=== PATIENT | male | born 1970 | race Caucasian/White ===

== ENCOUNTER 2017-03-09 07:27 | Emergency (ER) | payer OTHER ==
[2017-03-09 07:42] LABS: BASOPHILS # (AUTO) 0.1 10^3/uL (0.0-0.1); BASOPHILS % (AUTO) 1.2 %; EOSINOPHILS # (AUTO) 0.2 10^3/uL (0.0-0.7); EOSINOPHILS % (AUTO) 2.6 %; HGB - HEMOGLOBIN 16.1 g/dL (14.0-18.0); LYMPHOCYTES # (AUTO) 2.2 10^3/uL (1.5-3.5); LYMPHOCYTES % (AUTO) 31.4 %; MEAN CORPUSCULAR HGB CONC 34.2 g/dL (32.0-36.0); MEAN CORPUSCULAR VOLUME 90.5 fL (80.0-94.0); MEAN PLATELET VOLUME 8.6 fL (7.4-11.4); MONOCYTES # (AUTO) 0.8 10^3/uL (0.0-1.0); MONOCYTES % (AUTO) 11.9 %; NEUTROPHILS # (AUTO) 3.7 10^3/uL (1.5-6.6); NEUTROPHILS % (AUTO) 52.9 %; PLT - PLATELET COUNT 282 10^3/uL (130-450); RED BLOOD COUNT 5.18 10^6/uL (4.70-6.10); WHITE BLOOD COUNT 6.9 x10^3/uL (4.8-10.8)
[2017-03-09] MEDS ORDERED: SODIUM CHLORIDE 0.9% 1,000 ML IV ONE (07:48)
[2017-03-09] MEDS ORDERED: diltiaZEM INJ 5 MG/ML VIAL IVP STA (07:49)
[2017-03-09 07:55] LABS: ALBUMIN 4.5 g/dL (3.2-5.5); ALBUMIN/GLOBULIN RATIO 1.5 (1.0-2.2); BILIRUBIN,TOTAL 0.9 mg/dL (0.2-1.0); CALCIUM 9.5 mg/dL (8.5-10.3); CREATININE 1.2 mg/dL (0.6-1.2); TOTAL PROTEIN 7.6 g/dL (6.7-8.2)
[2017-03-09] MEDS ORDERED: diltiaZEM INJ 5 MG/ML VIAL ONE (07:56)
--- NOTE | 2017-03-09 08:11 | ED Physician Documentation ---
PD HPI CHEST PAIN - Stated complaint Stated Complaint: CHEST DISCOMFORT - Chief complaint Chief Complaint: Cardiac - History obtained from History obtained from: Patient - History of Present Illness Timing - onset: How many hours ago (5) Timing - onset during: Sleep Timing - details: Still present Location: Left chest Associated symptoms: Shortness of air (transient), Feeling faint / dizzy, Palpitations. No: Nausea, Vomiting Similar symptoms before: Diagnosis (Atrial fibrillation in 2005.) - Additional information Additional information: The patient is a 46-year-old male with past history of atrial fibrillation, who presents with palpitations, lightheadedness and chest discomfort that started about 2 AM, 5 hours prior to arrival. He feels transient shortness of breath when standing. He denies nausea or vomiting. His symptoms are similar to previous episode when he had atrial fibrillation in 2005. He converted spontaneously shortly after arrival in the emergency department at that time. He has no known history of hyperthyroidism. He is currently treated with metoprolol, 50 mg daily. He did take his metoprolol dose this morning. Review of Systems Constitutional: reports: Other (Lightheaded). denies: Fever Ears: denies: Tinnitus/ringing Nose: denies: Congestion Throat: denies: Sore throat Cardiac: reports: Chest pain / pressure, Palpitations Respiratory: reports: Dyspnea (Transient). denies: Cough GI: denies: Abdominal Pain, Nausea, Vomiting : denies: Dysuria Skin: denies: Rash Musculoskeletal: denies: Back pain Neurologic: denies: Syncope, Headache PD PAST MEDICAL HISTORY - Past Medical History Past Medical History: Yes Cardiovascular: Hypertension, Atrial fibrillation, Murmur, Arrhythmia Respiratory: None Neuro: None Endocrine/Autoimmune: None - Past Surgical History Ortho: Other - Present Medications Home Medications: Ambulatory Orders Medication Instructions Recorded Confirmed Metoprolol Tartrate 50 mg PO DAILY 03/09/17 03/09/17 Omeprazole [PriLOSEC] 20 mg PO DAILY 03/09/17 03/09/17 - Allergies Allergies/Adverse Reactions: Allergies Allergy/AdvReac Type Severity Reaction Status Date / Time No Known Drug Allergies Allergy Verified 03/09/17 07:34 - Social History Does the pt smoke?: No Smoking Status: Former smoker (Quit 3 years ago.) Does the pt drink ETOH?: No Does the pt have substance abuse?: No PD ED PE NORMAL - Vitals Vital signs reviewed: Yes (Tachycardic on the monitor, in the 140s. Hypertension.) - General General: Alert and oriented X 3, Well developed/nourished - HEENT HEENT: Atraumatic, EOMI, Moist mucous membranes - Neck Neck: No adenopathy, No JVD - Cardiac Cardiac: No murmur, Other (Rapid rate, irregularly irregular rhythm.) - Respiratory Respiratory: No respiratory distress, Clear bilaterally - Abdomen Abdomen: Soft, Non tender, No organomegaly - Back Back: No CVA TTP - Derm Derm: No rash - Extremities Extremities: No edema, No calf tenderness / cord - Neuro Neuro: Alert and oriented X 3, No motor deficit, Normal speech Results - Vitals Vitals: Oxygen O2 Source Room air - EKG (time done) 07:34 Rate: Rate (enter#) (147) Rhythm: Atrial fibrillation [place]: Normal QRS: Normal Ischemia: Normal ST segments Compare to prior EKG: Old EKG unavailable Computer interpretation: Agree with computer 10:43 Rate: Rate (enter#) (58) Rhythm: NSR [place]: Normal Intervals: Normal [place] QRS: Normal Ischemia: Normal ST segments Other comments: Other comments (Post cardioversion.) Compare to prior EKG: Changed from prior EKG (No longer in A-fib.) Computer interpretation: Agree with computer - Labs Labs: Laboratory Tests 03/09/17 03/09/17 03/09/17 07:34 07:34 07:34 WBC 6.9 RBC 5.18 Hgb 16.1 Hct 46.9 MCV 90.5 MCH 31.0 MCHC 34.2 RDW 13.0 Plt Count 282 MPV 8.6 Neut # 3.7 Lymph # 2.2 [place] # 0.8 Eos # 0.2 Baso # 0.1 Absolute Nucleated RBC 0.00 Nucleated RBC % 0.0 Sodium 139 Potassium 3.9 Chloride 103 Carbon Dioxide 23 Anion Gap 13.0 BUN 15 Creatinine 1.2 Estimated GFR (MDRD) 65 L Glucose 120 H Calcium 9.5 Total Bilirubin 0.9 AST 22 ALT 29 Alkaline Phosphatase 58 Troponin I < 0.04 Total Protein 7.6 Albumin 4.5 Globulin 3.1 Albumin/Globulin Ratio 1.5 Lipase 23 Procedures - Cardioversion Attempt 1 Indication: Tachyarrhythmia Risks, benefits, alternatives explained to: Pt Prep: IV, O2, airveyor operator, Pulse ox, Airway equip Meds: Ativan (1 mg), Propofol (80 mg) CS via: Pads, Anterolateral Sync: 150j Post cardioversion rhythm: NSR Performed by: ED MD [facility] DECISION MAKING - ED course Complexity details: reviewed old records, reviewed results, re-evaluated patient , considered differential, d/w patient, d/w family, d/w PMD ED course: The patient's presentation is significant for recurrent atrial fibrillation with rapid ventricular response. His presentation does not suggest acute myocardial ischemia, and troponin is normal, and EKG does not reveal acute ST elevations. TSH was checked, and is within normal range. CBC and chemistry panel are also normal. Treatment in the emergency department included administration of diltiazem 15 mg IV. Although his rate decreased, his rhythm remained atrial fibrillation. Metoprolol 5 mg is administered IV, with the same results. I discussed with him the risks and benefits of cardioversion. After administration of Ativan 1 mg and propofol 80 mg the patient was adequately sedated and underwent synchronous cardioversion at 150 J. Resulting rhythm was normal sinus. There were no complications from the procedure. I subsequently discussed his presentation with his primary physician, Dr. Knight, who agrees with urgent outpatient follow-up. He will address the issue of potential anticoagulation therapy. Chewable aspirin, 324 mg, was administered in the emergency department. The patient is being discharged with instructions to take one aspirin daily, and to call his primary physician's office today to schedule follow-up appointment. I also discussed with him potentially worrisome signs or symptoms that should prompt reevaluation in the emergency department. Departure - Departure Disposition: 01 Home, Self Care Clinical Impression: Atrial fibrillation Qualifiers: Atrial fibrillation type: paroxysmal Qualified Code(s): I48.0 - Paroxysmal atrial fibrillation Condition: Stable Instructions: ED Afib Follow-Up: Don Knight MD [Primary Care Provider] - Comments: Take 1 aspirin daily. Follow up with your primary physician within 1 week. Call today to schedule an appointment. Return to the emergency department if you develop recurrent atrial fibrillation , chest pain, shortness of breath, or otherwise worsening symptoms. Discharge Date/Time: 03/09/17 11:56
[2017-03-09] MEDS ORDERED: METOPROLOL 5 MG/5 ML VIAL IVP STA (08:56)
[2017-03-09] MEDS ORDERED: METOPROLOL 5 MG/5 ML VIAL IVP ONE (09:05)
[2017-03-09] MEDS ORDERED: MIDAZOLAM 2 MG/2 ML VIAL IVP STA (10:11)
[2017-03-09] MEDS ORDERED: PROPOFOL 200 MG/20 ML VIAL IVP STA (10:11)
[2017-03-09] MEDS ORDERED: ASPIRIN CHEW 81 MG TABLET PO STA (11:40)
[2017-03-09 11:51] VITALS: BP 113/63
== END 2017-03-09 11:56 | disposition home or self-care (01) ==
LOC: ED 07:27
DX: I48.0 Paroxysmal atrial fibrillation (principal); I10 Essential (primary) hypertension; Z87.891 Personal history of nicotine dependence
CPT/HCPCS: 36415; 80053; 83690; 84484; 85025; 92960; 93005; 94770; 96361; 96374; 96375; 99284; A9270

== ENCOUNTER 2018-05-21 10:52 | Emergency (ER) | payer OTHER ==
[2018-05-21 11:12] VITALS: BP 145/88
[2018-05-21 11:43] LABS: BASOPHILS % (AUTO) 0.8 %; EOSINOPHILS # (AUTO) 0.1 10^3/uL (0.0-0.7); EOSINOPHILS % (AUTO) 2.6 %; HGB - HEMOGLOBIN 14.3 g/dL (14.0-18.0); LYMPHOCYTES # (AUTO) 1.7 10^3/uL (1.5-3.5); LYMPHOCYTES % (AUTO) 32.8 %; MEAN CORPUSCULAR HEMOGLOBIN 31.1 pg (27.0-31.0); MEAN CORPUSCULAR HGB CONC 34.7 g/dL (32.0-36.0); MEAN CORPUSCULAR VOLUME 89.8 fL (80.0-94.0); MEAN PLATELET VOLUME 8.3 fL (7.4-11.4); MONOCYTES # (AUTO) 0.7 10^3/uL (0.0-1.0); MONOCYTES % (AUTO) 13.1 %; NEUTROPHILS # (AUTO) 2.6 10^3/uL (1.5-6.6); NEUTROPHILS % (AUTO) 50.7 %; PLT - PLATELET COUNT 268 10^3/uL (130-450); RED BLOOD COUNT 4.61 10^6/uL (4.70-6.10); RED CELL DISTRIBUTION WIDTH 13.3 % (12.0-15.0); WHITE BLOOD COUNT 5.1 x10^3/uL (4.8-10.8)
[2018-05-21 11:59] LABS: ALBUMIN 4.4 g/dL (3.2-5.5); ALBUMIN/GLOBULIN RATIO 1.6 (1.0-2.2); TOTAL PROTEIN 7.2 g/dL (6.7-8.2)
--- NOTE | 2018-05-21 12:38 | XRAY Report ---
Reason: heart palpations Procedure Date: 05/21/2018 Accession Number: [id number] / [id number] Procedure: XR - Chest 1 View X-Ray CPT Code: 65414 FULL RESULT: EXAM: CHEST RADIOGRAPHY EXAM DATE: 05/21/2018 12:17 PM. CLINICAL HISTORY: Heart palpations. COMPARISON: None. TECHNIQUE: 1 view. FINDINGS: Lungs/Pleura: No focal opacities evident. No pleural effusion. No pneumothorax. Mediastinum: Within exam limitations, the cardiomediastinal contour is normal. Other: None. IMPRESSION: Normal single view chest. RADIA
--- NOTE | 2018-05-21 14:23 | ED Physician Documentation ---
PD HPI CHEST PAIN - Stated complaint Stated Complaint: LIGHT HEAD/SOA - Chief complaint Chief Complaint: Cardiac - History obtained from History obtained from: Patient, Family - History of Present Illness Timing - onset: Today (About 8 AM this morning while sitting at a desk he suddenly felt lightheaded and it lasted until about noon. He was still symptomatic will be EKG was done here. He wondered if he might be in A. fib, because be it was similar to symptoms of prior A. fib which were also without significant palpitations or chest pain. His left arm felt wonky but not painful. He denies pedal edema, calf pain, shortness of breath, recent travel. He feels completely back to normal now.) Review of Systems Constitutional: denies: Fever, Chills, Myalgias, Fatigue Nose: denies: Rhinorrhea / runny nose, Congestion Cardiac: denies: Chest pain / pressure, Palpitations Respiratory: denies: Dyspnea PD PAST MEDICAL HISTORY - Past Medical History Cardiovascular: Hypertension, Atrial fibrillation, Murmur, Arrhythmia Respiratory: None Endocrine/Autoimmune: None - Past Surgical History Ortho: Other - Present Medications Home Medications: Ambulatory Orders Medication Instructions Recorded Confirmed Metoprolol Tartrate 50 mg PO DAILY 03/09/17 03/09/17 Omeprazole [PriLOSEC] 20 mg PO DAILY 03/09/17 03/09/17 Flecainide [Tambocar] 50 mg PO PRN 05/21/18 05/21/18 - Allergies Allergies/Adverse Reactions: Allergies Allergy/AdvReac Type Severity Reaction Status Date / Time No Known Drug Allergies Allergy Verified 05/21/18 11:12 - Social History Does the pt smoke?: No Smoking Status: Former smoker (Quit 3 years ago.) Does the pt drink ETOH?: No Does the pt have substance abuse?: No PD ED PE NORMAL - Vitals Vital signs reviewed: Yes - General General: Alert and oriented X 3, No acute distress - HEENT HEENT: PERRL, EOMI - Neck Neck: Supple, no meningeal sign, No bony TTP - Cardiac Cardiac: RRR, No murmur - Respiratory Respiratory: No respiratory distress, Clear bilaterally - Abdomen Abdomen: Soft, Non tender - Back Back: No CVA TTP, No spinal TTP - Derm Derm: Normal color, Warm and dry - Extremities Extremities: No edema, No calf tenderness / cord - Neuro Neuro: Alert and oriented X 3, Normal speech Results - Vitals Vitals: Vital Signs - 24 hr 05/21/18 11:10 Temperature 36.3 C L Heart Rate 60 Respiratory 20 Rate Blood Pressure 145/88 H O2 Saturation 96 Oxygen O2 Source Room air - EKG (time done) 1117 Rate: Rate (enter#) (55) Rhythm: NSR [place]: Normal Intervals: Normal [place] QRS: Normal Ischemia: ST elevation c/w repol. No: ST depression Computer interpretation: Agree with computer - Labs Labs: Laboratory Tests 05/21/18 05/21/18 05/21/18 11:25 11:25 11:25 WBC 5.1 RBC 4.61 L Hgb 14.3 Hct 41.4 L MCV 89.8 MCH 31.1 H MCHC 34.7 RDW 13.3 Plt Count 268 MPV 8.3 Neut # (Auto) 2.6 Lymph # (Auto) 1.7 [place] # (Auto) 0.7 Eos # (Auto) 0.1 Baso # (Auto) 0.0 Absolute Nucleated RBC 0.00 Nucleated RBC % 0.0 Sodium 135 Potassium 4.0 Chloride 103 Carbon Dioxide 24 Anion Gap 8.0 BUN 14 Creatinine 1.0 Estimated GFR (MDRD) 80 L Glucose 104 H Calcium 9.0 Total Bilirubin 1.0 AST 27 ALT 40 Alkaline Phosphatase 54 Troponin I < 0.04 Total Protein 7.2 Albumin 4.4 Globulin 2.8 Albumin/Globulin Ratio 1.6 Lipase 31 PD MEDICAL DECISION MAKING - ED course ED course: 47-year-old gentleman with lightheaded episode. Seems unlikely to be A. fib because he was still symptomatic when he arrived and was in the waiting room and the EKG was done which was normal sinus rhythm. He does note that he was sick over the weekend with sore throat and may have had poor a p.o. intake. Regardless he is asymptomatic now and his workup is negative. Departure - Departure Disposition: 01 Home, Self Care Clinical Impression: Lightheaded Condition: Good Record reviewed to determine appropriate education?: Yes Instructions: ED Chest Pain NonCardiac Comments: Call your doctor to arrange a follow-up appointment, make the next available appointment. In the interim, return anytime if worse or if new symptoms develop. Your blood pressure was elevated today on check into the emergency department. This does not mean that you have hypertension, it is a common phenomenon to come to the emergency department and have elevated blood pressure. I recommend that you see your primary care physician within the week to have it rechecked when you are feeling better.
== END 2018-05-21 14:30 | disposition home or self-care (01) ==
LOC: ED 10:52
DX: R42 Dizziness and giddiness (principal); I10 Essential (primary) hypertension; Z87.891 Personal history of nicotine dependence
CPT/HCPCS: 36415; 71045; 80053; 83690; 84484; 85025; 93005; 99282; 99284

== ENCOUNTER 2018-12-04 09:56 | Outpatient (CLI) | payer OTHER ==
[2018-12-04 10:50] VITALS: BP 125/81
--- NOTE | 2018-12-04 10:50 | SLEEP CARE CONSULTATION ---
Information from patient questionnaire entered by Yudith Herbert. I have reviewed and concur with the information entered by Yudith Herbert. This document represents the service I personally performed and the decisions made by me, Cary Lyn MD, [facility]. History of Present Illness Reason for Visit: New patient Chief Complaint: reports: Snoring, Frequent awakenings at night Duration of Symptoms: 5 years Usual bedtime: 2525-2139 Time it takes to fall asleep: 3 minutes Snores at night: Yes Observed to quit breathing while asleep: Yes Sleeps alone due to snoring: No Number of times waking at night: 2-3 Reasons for waking at night: reports: Pain Toss, Turn, or Twitch while sleeping: Yes Recalls having dreams: No Usually gets out of bed at: [id number] Feels refreshed in the morning: No Morning headache: No Sleepy or fatigued during the day: No Ever fallen asleep while driving: Yes Takes day naps: No Dreams during day naps: No Prior sleep studies: No Additional HPI information: I had the pleasure of seeing Mr. Amaya along with his today regarding the possibility of his having a sleep disorder. As you know, he is a 48 year old gentleman who complains of loud snore and frequent awakenings for the past 5 y ears. During the day he can feel his throat closing up. Upper airway endoscopy did not reveal any abnormalities but the ENT physician recommended a sleep study. The patient tells me that he normally goes to bed around 9 - 11 pm, and it takes him approximately 3 minutes to fall asleep. He has been told that he snores loudly and irregularly at night. HE has also been observed to stop breathing in his sleep. His spouse can still sleep in the same bed. He can recall waking up on the average of 2 - 3 times during the night. Most of the time he wakes up because of pain. He has awakened occasionally because of his own snoring, or choking, or having to gasp for air. There is a lot of tossing and turning in his sleep. He has somniloquy (sleep talking) but not somnambulism (sleep walking). Generally there is no recollection of dreams. In the morning he usually gets up out of the bed around 4 - 5 a.m. not feeling refreshed nor rested. He usually does not have a morning headache. During the day he does not feel sleepy or fatigued. However, his score on [place] Sleepiness Scale is 12 out of 24. He has never fallen asleep while driving nor has had any accident due to sleepiness. He usually does not take naps during the day. Upon falling asleep during the day he denies having vivid dreams. He has never had sleep paralysis, experienced cataplexy but reports symptoms of restless leg syndrome. He denies having impaired concentration during the day. Subjective Initial [place] Sleepiness Scale score: 12 Past Medical History Past Medical History: reports: Hypertension, GERD Social History The patient's occupation is retired. Patient is and lives in [place]. Have you smoked in the past 12 months: Yes Cigarettes per day (20/pack): 20 Years of smokin Quit date: 2014 Smoking Pack Years: 35.0 Alcohol use: Yes Alcohol amount and frequency: 2 beers/night Caffeine use: Yes Caffeine amount and frequency: 1-2 coffees/morning Family History Family history of sleep disordered breathing: Yes Family Hx Sleep Apnea: Mother: Snoring, Sleep apnea - Treated, Sleep apnea - Untreated Allergies and Home Medications Drug allergies reviewed: Yes Home medication list reviewed: Yes Allergy and home medication list: Medications: Metoprolol and omeprazole Review of Systems Weight gain over past 5 years: 50 Cardiovascular: reports: high blood pressure, irregular heart rate or pulse Respiratory: reports: shortness of breath Gastrointestinal: reports: heartburn, difficulty swallowing Urinary: denies: incontinence, frequency, urgency, impotence, other Neurological: denies: headaches, seizure, head trauma, disorientation, speech dysfunction, gait or balance problems, fainting or unconsciousness, other Psychiatric: denies: Attention Deficit Hyperactivity, anxiety, depression, mood disorder, claustrophobia, other Ear/Nose/Throat: reports: wisdom teeth removed Endocrine: denies: thyroid disease, history of goiter, sluggishness, too hot or cold, excessive thirst, increased appetite, increased urination, unexplained weakness, other Musculoskeletal: reports: joint pain, neck pain, back pain, mobility problems Immunologic: reports: sneezing Physical Exam Vital signs obtained and entered by: Dr. Lyn Blood Pressure: 125/81 Cuff size: regular Heart Rate: 55 O2 Saturation: 96 Height: 6 ft Weight: 215 lb Body Mass Index: 29.1 BMI Classification: Overweight Neck circumference: 16.5 Mood/affect: normal HEENT: No craniofacial malformation Nostrils: patent to airflow Turbinates: normal Septum: midline Mouth and throat: narrow oropharynx Soft palate: normal Hard palate: normal Uvula: normal Uvula visualization: 25% Mallampati Class III Tongue: normal in size Tonsils: small Chin and jaw: normal size and position Neck: normal w/o lymphadenopathy or thyromegaly Heart: regular rate and rhythm Lungs: clear bilaterally Abdomen: soft, non-tender Extremities: no edema or clubbing Neurologic: intact, no focal deficits Impression and Plan IMPRESSION: 1. Obstructive Sleep Apnea-Hypopnea Syndrome, as suggested by history of loud and irregular snoring, observed cessation of breath while asleep, frequent awakenings, unrefreshed sleep, and persistent fatigue. Narrow oropharynx and obesity are common predisposing factors for obstructive sleep apnea-hypopnea syndrome. Pathophysiology of sleep-disordered breathing was discussed. I recommend proceeding to polysomnography to confirm the diagnosis and to assess severity. If he has significant sleep disordered breathing, a manual CPAP titration study will also be performed to find the optimal treatment pressure. I informed the patient of what the sleep studies involve and after some discussion, he agreed to proceed. Plan: 1. Schedule polysomnography + manual CPAP titration study and return in 1 to 2 weeks after the study to discuss result and initiate therapy. 2. Avoid long distance driving or when feeling sleepy. 3. Avoid alcohol, sedative and muscle relaxant around bedtime. 4. Attempt to lose some weight. I spent 100% of this 20 minute visit face to face with the patient with greater than 50% of this was spent time counseling the patient and coordination of care.
== END 2018-12-04 09:57 | disposition home or self-care (01) ==
LOC: SC 09:56
PROVIDERS: ATTEND Internal Medicine Pulmonary Disease
DX: R06.83 Snoring (principal); R06.81 Apnea, not elsewhere classified; G47.8 Other sleep disorders; R53.83 Other fatigue
CPT/HCPCS: 99203; 99212

== ENCOUNTER 2019-01-21 19:13 | Outpatient (CLI) | payer OTHER | END 2019-01-21 19:14 | disposition home or self-care (01) | LOC: SC 19:13 | PROVIDERS: ATTEND Internal Medicine Pulmonary Disease | DX: G47.33 Obstructive sleep apnea (adult) (pediatric) (principal); G47.61 Periodic limb movement disorder | CPT/HCPCS: 95810 ==

== ENCOUNTER 2019-01-28 11:04 | Outpatient (CLI) | payer OTHER ==
[2019-01-28 12:37] VITALS: BP 132/82
--- NOTE | 2019-01-28 12:37 | SLEEP CARE CONSULTATION ---
Information from patient questionnaire entered by Yudith Herbert. I have reviewed and concur with the information entered by Yudith Herbert. This document represents the service I personally performed and the decisions made by me, Imelda Aleman, RN, MSN, [employer]. History of Present Illness Prior sleep studies: Yes Year and Where: 2018 [facility] additional information: MIRANDA ANTUNEZ returns for follow up of the recently performed polysomnography and informed of findings . I explained the pathophysiology behind obstructive sleep apnea. We then spent quite a bit of time discussing different treatment options. For mild obstructive sleep apnea, surgery and oral appliance are alternatives to nasal CPAP therapy but in moderate or severe cases, nasal CPAP is the most effective and reliable treatment. Because apnea is primarily in supine position, then positional management therapy could be effective. Methods discussed such as positioning with pillows, using a T-shirt with tennis balls in the back, and shown commercial products that have a pillow format on back to prevent supine sleep. I reviewed the impact of weight changes on sleep apnea and strongly recommended losing weight. I explained how CPAP machine works with sample devices Resp[employer]ics Dreamstation and [employer] [id number] and what to expect when using the machine. After some discussion, the patient opted to consider his treatment options with his spouse and contact this office. Until then he will use positional therapy. Patient counseled not drink alcohol less than 4 hours before bedtime as it can increase snoring and apnea. Patient does not drink alcohol. Patient was cautioned about risks of drowsy driving until sleepiness symptoms resolve. Patient denies drowsy driving. AAS patient education on snoring and sleep apnea given and reviewed. Sleep Study - Polysomnography Polysomnography findings: The quality of the study is good. The patient had normal sleep efficiency. The sleep architecture was normal as well. Respiratory monitoring showed mild obstructive sleep apnea- hypopnea (AHI = 6.5) associated with frequent arousals, oxyhemoglobin desaturation and mild hypoxia (liang oxygen saturation of 87%). The respiratory events occurred almost exclusively during supine sleep (supine AHI = 23.2; non-supine = 3.18). Snore was light in intensity. There was mild periodic leg movement of sleep not associated with sleep fragmentation.. Cardiac rhythm was normal sinus rhythm without significant arrhythmia. No abnormal behavior (parasomnia) observed during the night. Subjective Initial [place] Sleepiness Scale score: 12 Current [place] Sleepiness Scale score: 11 Allergies and Home Medications Known drug allergies: No Home medication list reviewed: Yes Allergy and home medication list: omeprazole 20mg daily metoprolol 50mg daily flecainide 50 mg prn Review of Systems Review of systems same as previous: Yes Physical Exam Blood Pressure: 132/82 Cuff size: long Heart Rate: 58 O2 Saturation: 98 Height: 6 ft Weight: 222 lb 6.4 oz Body Mass Index: 30.2 BMI Classification: Obesity Class 1 Impression and Plan 1. Obstructive Sleep Apnea-Hypopnea Syndrome, mild, with lowest oxygen saturation of 87%. Probably this is the cause of the patients symptoms of unrefreshed sleep and excessive daytime sleepiness. Positive pressure therapy could benefit his hypertension and patient informed this was gold standard of treatment if hypertension diagnosis. As mentioned above, the patient will discuss his treatment options with his spouse and contact this office. Because the apnea is more severe supine, I instructed to avoid sleeping supine. Slumberbump information given. 2. Periodic limb movement, mild, that did not fragment patients sleep. Periodic limb movement of sleep (PLMS) is characterized by episodes of repetitive limb movements that occur during sleep and usually involve the lower limbs. The etiology is unknown but can be associated with restless leg syndrome (RLS), neuropathy, spinal cord diseases, kidney disease, rheumatological disorders, narcolepsy, obstructive sleep apnea, and REM sleep behavior disorder. Other factors that can increase PLMS and/or RLS are heredity and iron deficiency as reflected by a low serum ferritin level below 50 to 75mcg / L. Several medications can precipitate or aggravate PLMS such as selective serotonin re- uptake inhibitor antidepressants, tricyclic antidepressants, lithium, and dopamine receptor antagonists with the exception of bupropion. Caffeine can also aggravate PLMS and should be avoided. Sleep hygiene methods can also improve sleep as well as lifestyle changes such as regular exercise. Patient was advised that no treatment is needed at this time. If symptoms increase, then further evaluation is indicated. * Avoid supine sleep * Attempt to lose weight. * Avoid alcohol consumption near bedtime. * The patient is again cautioned about driving until sleepiness completely resolves. * Contact this office with choice of treatment. I spent 100% of this 25 minute visit face to face with the patient with greater than 50% of this was spent time counseling the patient and coordination of care.
== END 2019-01-28 11:05 | disposition home or self-care (01) ==
LOC: SC 11:04
PROVIDERS: ATTEND Nurse Practitioner Family
DX: G47.33 Obstructive sleep apnea (adult) (pediatric) (principal); G47.61 Periodic limb movement disorder; E66.9 Obesity, unspecified; Z68.30 Body mass index [BMI] 30.0-30.9, adult
CPT/HCPCS: 99212; 99214

== ENCOUNTER 2020-02-05 06:57 | Emergency (ER) | payer OTHER ==
[2020-02-05] MEDS ORDERED: ASPIRIN CHEW 81 MG TABLET PO STA (07:13)
--- NOTE | 2020-02-05 07:26 | ED Physician Documentation ---
PD HPI CHEST PAIN - Stated complaint Stated Complaint: CHEST PX - Chief complaint Chief Complaint: Cardiac - History obtained from History obtained from: Patient - Additional information Additional information: 49-year-old gentleman with history of atrial fibrillation but no history of heart disease. He has had a couple of negative nuclear stress test in the past, most recently in 2016 he had a negative stress echo. He was up this morning to get ready for work at 430. Developed some left-sided chest discomfort going into the left arm. He is not short of breath with it. He feels slightly odd and nauseous and dizzy with it. Pain is not severe. Pain does not radiate to the back. No pedal edema calf pain or recent travel. Review of Systems Ten Systems: 10 systems reviewed and negative Constitutional: denies: Fever, Chills Nose: denies: Rhinorrhea / runny nose, Congestion Cardiac: reports: Chest pain / pressure. denies: Palpitations, Pedal edema, Calf pain Respiratory: denies: Dyspnea, Cough PD PAST MEDICAL HISTORY - Past Medical History Cardiovascular: Hypertension, Atrial fibrillation, Murmur, Arrhythmia Respiratory: None Endocrine/Autoimmune: None - Past Surgical History Ortho: Other - Present Medications Home Medications: Ambulatory Orders Medication Instructions Recorded Confirmed Metoprolol Tartrate 50 mg PO DAILY 03/09/17 03/09/17 Omeprazole [PriLOSEC] 20 mg PO DAILY 03/09/17 03/09/17 Flecainide [Tambocar] 50 mg PO PRN 05/21/18 05/21/18 - Allergies Allergies/Adverse Reactions: Allergies Allergy/AdvReac Type Severity Reaction Status Date / Time No Known Drug Allergies Allergy Verified 02/05/20 07:06 - Social History Does the pt smoke?: No Smoking Status: Never smoker Does the pt drink ETOH?: No Does the pt have substance abuse?: No PD ED PE NORMAL - Vitals Vital signs reviewed: Yes - General General: Alert and oriented X 3, No acute distress - HEENT HEENT: PERRL, EOMI - Neck Neck: Supple, no meningeal sign, No bony TTP - Cardiac Cardiac: RRR, No murmur - Respiratory Respiratory: No respiratory distress, Clear bilaterally - Abdomen Abdomen: Soft, Non tender - Back Back: No CVA TTP, No spinal TTP - Derm Derm: Normal color, Warm and dry - Extremities Extremities: No edema, No calf tenderness / cord - Neuro Neuro: Alert and oriented X 3, Normal speech Results - Vitals Vitals: Vital Signs - 24 hr 02/05/20 02/05/20 02/05/20 07:02 07:05 07:35 Temperature 36.0 C L 36.3 C L 37.1 C Heart Rate 61 58 L 60 Respiratory 18 16 16 Rate Blood Pressure 140/82 H 122/87 H 128/80 O2 Saturation 99 99 99 02/05/20 02/05/20 02/05/20 08:05 09:00 10:00 Temperature Heart Rate 56 L 50 L 52 L Respiratory 16 15 16 Rate Blood Pressure 129/84 H 125/79 121/88 H O2 Saturation 98 99 99 02/05/20 10:30 Temperature 36.7 C Heart Rate 60 Respiratory 12 Rate Blood Pressure 130/82 H O2 Saturation 100 Oxygen O2 Source Room air - EKG (time done) 0702 Rate: Rate (enter#) (58) Rhythm: NSR, LAE [place]: Normal Intervals: Normal DC QRS: Normal Ischemia: ST elevation c/w repol Compare to prior EKG: Unchanged from prior EKG (no change from 05/21/18) Computer interpretation: Agree with computer - Labs Labs: Laboratory Tests 02/05/20 02/05/20 02/05/20 07:30 07:30 07:30 WBC 3.7 L RBC 4.64 L Hgb 14.5 Hct 42.9 MCV 92.5 MCH 31.3 H MCHC 33.8 RDW 12.0 Plt Count 268 MPV 10.4 Neut # (Auto) 1.7 Lymph # (Auto) 1.3 L [place] # (Auto) 0.5 Eos # (Auto) 0.1 Baso # (Auto) 0.0 Absolute Nucleated RBC 0.00 Nucleated RBC % 0.0 Sodium 137 Potassium 4.2 Chloride 105 Carbon Dioxide 24 Anion Gap 8.0 BUN 20 Creatinine 1.2 Estimated GFR (MDRD) 64 L Glucose 115 H Calcium 9.4 Total Bilirubin 0.8 AST 21 ALT 28 Alkaline Phosphatase 49 Troponin I High Sens 2.6 Total Protein 7.4 Albumin 4.7 Globulin 2.7 Albumin/Globulin Ratio 1.7 Lipase 28 02/05/20 09:47 WBC RBC Hgb Hct MCV MCH MCHC RDW Plt Count MPV Neut # (Auto) Lymph # (Auto) [place] # (Auto) Eos # (Auto) Baso # (Auto) Absolute Nucleated RBC Nucleated RBC % Sodium Potassium Chloride Carbon Dioxide Anion Gap BUN Creatinine Estimated GFR (MDRD) Glucose Calcium Total Bilirubin AST ALT Alkaline Phosphatase Troponin I High Sens 2.6 Total Protein Albumin Globulin Albumin/Globulin Ratio Lipase - Rads (name of study) 1v cxr Radiology: EMP read contemporaneously (NAD) PD MEDICAL DECISION MAKING - ED course ED course: 1-year-old gentleman with atraumatic chest pain this morning. Nonischemic EKG. Delta troponin negative. Heart score 2 Departure - Departure Disposition: Home, Self Care Clinical Impression: Chest pain Qualifiers: Chest pain type: unspecified Qualified Code(s): R07.9 - Chest pain, unspecified Condition: Good Record reviewed to determine appropriate education?: Yes Instructions: ED Chest Pain NonCardiac Comments: You were seen today for chest pain, there is no evidence of active heart disease. Follow-up with your primary care physician or house detective, next available appointment. Consider repeat stress testing since it has been a few years. Return if worsening. Continue current medications. Discharge Date/Time: 02/05/20 10:39
[2020-02-05 07:42] LABS: BASOPHILS % (AUTO) 1.1 %; EOSINOPHILS # (AUTO) 0.1 10^3/uL (0.0-0.7); EOSINOPHILS % (AUTO) 3.3 %; HGB - HEMOGLOBIN 14.5 g/dL (14.0-18.0); LYMPHOCYTES # (AUTO) 1.3 10^3/uL (1.5-3.5); LYMPHOCYTES % (AUTO) 35.1 %; MEAN CORPUSCULAR HEMOGLOBIN 31.3 pg (27.0-31.0); MEAN CORPUSCULAR HGB CONC 33.8 g/dL (32.0-36.0); MEAN CORPUSCULAR VOLUME 92.5 fL (80.0-94.0); MEAN PLATELET VOLUME 10.4 fL (7.4-11.4); MONOCYTES # (AUTO) 0.5 10^3/uL (0.0-1.0); MONOCYTES % (AUTO) 13.9 %; NEUTROPHILS # (AUTO) 1.7 10^3/uL (1.5-6.6); NEUTROPHILS % (AUTO) 46.1 %; PLT - PLATELET COUNT 268 10^3/uL (130-450); RED BLOOD COUNT 4.64 10^6/uL (4.70-6.10); WHITE BLOOD COUNT 3.7 x10^3/uL (4.8-10.8)
[2020-02-05 07:52] LABS: ALBUMIN 4.7 g/dL (3.2-5.5); ALBUMIN/GLOBULIN RATIO 1.7 (1.0-2.2); BILIRUBIN,TOTAL 0.8 mg/dL (0.2-1.0); CALCIUM 9.4 mg/dL (8.5-10.3); CREATININE 1.2 mg/dL (0.6-1.2); TOTAL PROTEIN 7.4 g/dL (6.7-8.2)
--- NOTE | 2020-02-05 08:26 | XRAY Report ---
PROCEDURE: Chest 1 View X-Ray INDICATIONS: Chest Pain TECHNIQUE: One view of the chest was acquired. COMPARISON: 05/21/2018. FINDINGS: Surgical changes and devices: None. Lungs and pleura: No pleural effusions or pneumothorax. Lungs are clear. Mediastinum: Mediastinal contours appear normal. Heart size is normal. Bones and chest wall: No suspicious bony lesions. Overlying soft tissues appear unremarkable. IMPRESSION: No acute disease. Findings are concordant with the preliminary study interpretation provided at the time of the study. Reviewed by: Paul Pickard MD on 02/05/2020 8:25 AM PST Approved by: Paul Pickard MD on 02/05/2020 8:25 AM PST Station ID: [id number]
[2020-02-05 10:32] VITALS: BP 130/82
== END 2020-02-05 10:39 | disposition home or self-care (01) ==
LOC: ED 06:57
DX: R07.89 Other chest pain (principal); I10 Essential (primary) hypertension; Z86.79 Personal history of other diseases of the circulatory system
CPT/HCPCS: 36415; 71045; 80053; 83690; 84484; 85025; 93005; 99284; 99285; A9270